=== PATIENT | female | born 1950 | race Caucasian/White ===

== ENCOUNTER 2019-11-10 11:24 | Outpatient (REF) | payer MEDICARE, SELFPAY | END 2019-11-10 11:25 | disposition home or self-care (01) | LOC: HO.HMGCLDS 11:24 | PROVIDERS: PCP Internal Medicine; Visit Provider Internal Medicine | DX: Z20.828 Contact with and (suspected) exposure to other viral communicable diseases (principal) | CPT/HCPCS: 36415; 87635 ==